=== PATIENT | female | born 1970 | race Caucasian/White ===

== ENCOUNTER 2018-12-16 16:07 | Emergency (ER) | payer BC ==
[~2018-12-16] VITALS: Ht 154.9 cm; Wt 85.0 kg
[2018-12-16 17:22] LABS: CLARITY,URINE CLEAR (Clear); COLOR,URINE YELLOW (Yellow); GLUCOSE, URINE NEGATIVE (Neg); KETONES,URINE NEGATIVE (Neg); LEUKOCYTE ESTERASE ,URINE NEGATIVE (Neg); NITRITES, URINE NEGATIVE (Neg); OCCULT BLOOD,URINE TRACE-INTACT (Neg); PROTEIN,URINE NEGATIVE (Neg); URINE HCG NEGATIVE (NEG); UROBILINOGEN,URINE 0.2 E.U/dL (0.2-1.0)
[2018-12-16 17:25] LABS: BASOPHILS # (AUTO) 0.1 X10'3 (0-0.2); BASOPHILS % (AUTO) 1.2 % (0-1); EOSINOPHILS # (AUTO) 0.1 X10'3 (0-0.9); EOSINOPHILS % (AUTO) 1.5 % (0-6); HEMATOCRIT 41.5 % (35.0-45.0); HEMOGLOBIN 13.3 g/dl (12.0-16.0); LYMPHOCYTES # (AUTO) 2.5 X10'3 (1.1-4.8); MEAN CORPUSCULAR VOLUME 90.7 FL (78-98); MEAN PLATELET VOLUME 10.5 FL (7.4-10.4); MONOCYTES # (AUTO) 0.7 X10'3 (0-0.9); MONOCYTES % (AUTO) 9.2 % (2-12); NEUTROPHILS # (AUTO) 3.8 X10'3 (1.8-7.7); NEUTROPHILS % (AUTO) 53.1 % (42-75); PLATELET COUNT 182 X10'3 (140-440); RED BLOOD COUNT 4.58 X10'6 (4.20-5.60); RED CELL DISTRIBUTION WIDTH 13.3 % (11.5-14.5); WHITE BLOOD COUNT 7.2 X10'3 (4.5-11.0)
[2018-12-16 17:27] LABS: UA COLLECTION TYPE CLN CATCH MIDSTREAM
[2018-12-16 17:28] LABS: BACTERIA,URINE NONE SEEN /HPF (Neg); MUCUS STRANDS NONE SEEN /LPF (Neg); RBC,URINE 0-2 /HPF (0-2); SQUAMOUS EPITHELIAL CELL,UR FEW /LPF (FEW); WBC,URINE NONE SEEN /HPF (0-4)
[2018-12-16 17:36] LABS: ALANINE AMINOTRANSFERASE 33 U/L (12-78); ALBUMIN 4.1 G/DL (3.4-5.0); ALBUMIN/GLOBULIN RATIO 1.3 (1.1-1.5); ALKALINE PHOSPHATASE 62 IU/L (46-116); ANION GAP 4 (8-16); ASPARTATE AMINO TRANSFERASE 17 U/L (10-37); BILIRUBIN,TOTAL 0.2 MG/DL (0.1-1.0); BLOOD UREA NITROGEN 11 MG/DL (7-18); BUN/CREATININE RATIO 14.5 (6.6-38.0); CALCIUM 9.6 MG/DL (8.5-10.1); CHLORIDE 104 MMOL/L (99-107); CREATININE 0.76 MG/DL (0.40-0.90); GLUCOSE 94 MG/DL (70-104); POTASSIUM 3.9 MMOL/L (3.5-5.1); SODIUM 140 MMOL/L (135-145); TOTAL CARBON DIOXIDE 31.8 MMOL/L (24-32); TOTAL PROTEIN 7.2 G/DL (6.4-8.2); eGFR 81 ML/MIN
[2018-12-16 17:37] LABS: PROTHROMBIN TIME 9.9 SECONDS (9.0-12.0)
[2018-12-16 17:42] LABS: LARGE PLATELETS FEW; PLATELET ESTIMATE NORMAL
[2018-12-16] MEDS ORDERED: ondansetron 4mg rapidly disintigrating tab PO ONE (18:00)
[2018-12-16] MEDS ORDERED: morphine 4 MG/ML inj SYRINge IM ONE (18:00)
[2018-12-16 18:06] LABS: LIPASE 111 U/L (73-393)
[2018-12-16 19:34] VITALS: BP 152/86
[2018-12-16] MEDS ORDERED: SUCR1TAB34 PO (19:36)
[2018-12-16] MEDS ORDERED: PANT-47 PO (19:36)
[2018-12-16] MEDS ORDERED: TRAM50TA2 PO (19:36)
== END 2018-12-16 19:59 | disposition home or self-care (01) ==
LOC: ER 16:07
DX: R10.11 Right upper quadrant pain (principal); R11.0 Nausea; R10.813 Right lower quadrant abdominal tenderness; Z88.0 Allergy status to penicillin; Z79.899 Other long term (current) drug therapy
CPT/HCPCS: 36415; 76700; 80053; 81001; 81025; 83690; 85025; 85610; 96372; 99284; J2270

== ENCOUNTER 2021-04-06 12:12 | Emergency (ER) | payer BC ==
[~2021-04-06] VITALS: Ht 154.9 cm; Wt 90.0 kg
[~2021-04-06 12:12] MED LIST: PANT-47 PO; SUCR1TAB34 PO
[2021-04-06 12:59] LABS: BASOPHILS % (AUTO) 0.6 % (0-1); EOSINOPHILS % (AUTO) 0.8 % (0-6); HEMATOCRIT 41.4 % (35.0-45.0); HEMOGLOBIN 13.9 g/dl (12.0-16.0); LYMPHOCYTES # (AUTO) 1.7 X10'3 (1.1-4.8); LYMPHOCYTES % (AUTO) 41.3 % (21-51); MEAN CORPUSCULAR HEMOGLOBIN 30.3 PG (27.0-31.0); MEAN CORPUSCULAR HGB CONC 33.6 g/dL (33.0-36.5); MEAN PLATELET VOLUME 9.5 FL (7.4-10.4); MONOCYTES # (AUTO) 0.5 X10'3 (0-0.9); MONOCYTES % (AUTO) 12.2 % (2-12); NEUTROPHILS # (AUTO) 1.8 X10'3 (1.8-7.7); NEUTROPHILS % (AUTO) 45.1 % (42-75); PLATELET COUNT 144 X10'3 (140-440); RED BLOOD COUNT 4.59 X10'6 (4.20-5.60); RED CELL DISTRIBUTION WIDTH 13.8 % (11.5-14.5)
[2021-04-06 13:15] LABS: ALANINE AMINOTRANSFERASE 116 U/L (12-78); ALBUMIN 4.2 G/DL (3.4-5.0); ALBUMIN/GLOBULIN RATIO 1.2 (1.1-1.5); ALKALINE PHOSPHATASE 65 IU/L (46-116); ANION GAP 12 (8-16); ASPARTATE AMINO TRANSFERASE 67 U/L (10-37); BILIRUBIN,TOTAL 0.4 MG/DL (0.1-1.0); BLOOD UREA NITROGEN 7 MG/DL (7-18); BUN/CREATININE RATIO 12.3 (6.6-38.0); CALCIUM 8.6 MG/DL (8.5-10.1); CHLORIDE 101 MMOL/L (99-107); CREATININE 0.57 MG/DL (0.40-0.90); GLUCOSE 92 MG/DL (70-104); POTASSIUM 3.7 MMOL/L (3.5-5.1); SODIUM 138 MMOL/L (135-145); TOTAL CARBON DIOXIDE 24.7 MMOL/L (24-32); TOTAL PROTEIN 7.8 G/DL (6.4-8.2); eGFR > 90 ML/MIN
[2021-04-06] MEDS ORDERED: iohexol 350MG/ML 100ml bottle IV ONE (13:20)
[2021-04-06] MEDS ORDERED: normal saline 1000ML IV soln IVB ONE (13:25)
[2021-04-06] MEDS ORDERED: dexamethasone sod phosphate 10mg/ml inj IV STA (14:22)
[2021-04-06] MEDS ORDERED: ONDA4TAB6 PO (14:24)
[2021-04-06] MEDS ORDERED: DEXA4TAB67 PO (14:24)
[2021-04-06] MEDS ORDERED: AZIT250T2 PO (14:24)
[2021-04-06] MEDS ORDERED: azithromycin/NS 500mg/250ml 250 ML IV ONE (14:25)
--- NOTE | 2021-04-06 15:11 | NUR ---
Annamaria at bedside for pt's update
[2021-04-06 17:10] VITALS: BP 142/88
== END 2021-04-06 17:12 | disposition home or self-care (01) ==
LOC: ER 12:13
DX: U07.1 COVID-19 (principal); J12.82 Pneumonia due to coronavirus disease 2019; R06.02 Shortness of breath; R53.1 Weakness; R07.89 Other chest pain; R55 Syncope and collapse; E03.9 Hypothyroidism, unspecified; Z88.0 Allergy status to penicillin; Z79.2 Long term (current) use of antibiotics; Z79.899 Other long term (current) drug therapy
CPT/HCPCS: 36415; 71045; 71275; 80053; 83880; 84484; 85025; 93005; 96365; 96366; 96375; 99285; J0456; J1100; J7030; Q9967